=== PATIENT | male | born 1960 | race African-American/Black ===

== ENCOUNTER 2018-07-18 10:11 | Inpatient (IN) | payer OTHER ==
[2018-07-18 10:59] VITALS: BMI 23.4
--- NOTE | 2018-07-18 12:11 | HP ---
CIWA Score Nausea/Vomitin-No Nausea/No Vomiting Muscle Tremors: 4-Moderate,w/Arms Extend Anxiety: 2 Agitation: 0-Normal Activity Paroxysmal Sweats: 3 Orientation: 0-Oriented Tacttile Disturbances: 2-Mild Itch/Numbness/Burn Auditory Disturbances: 0-None Visual Disturbances: 1-Very Mild Sensitivity Headache: 0-None Present CIWA-Ar Total Score: 12 - Admission Criteria OASAS Guidelines: Admission for Medically Managed Detox: Requires at least one of the followin. CIWA greater than 12 2. Seizures within the past 24 hours 3. Delirium tremens within the past 24 hours 4. Hallucinations within the past 24 hours 5. Acute intervention needed for co occurring medical disorder 6. Acute intervention needed for co occurring psychiatric disorder 7. Severe withdrawal that cannot be handled at a lower level of care (continued vomiting, continued diarrhea, abnormal vital signs) requiring intravenous medication and/or fluids 8. Patient presents the following: CIWA greater than 12 Admission Criteria Met: Admission criteria met Admission ROS S - HPI Chief Complaint: alcohol withdrawal symptoms Allergies/Adverse Reactions: Allergies Allergy/AdvReac Type Severity Reaction Status Date / Time No Known Allergies Allergy Verified 07/18/18 10:52 History of Present Illness: Patient is a 58 yo male with hx of alcohol dependence is here seeking inpatient detox d/t withdrawal symptoms. Patient reports evaluated today at [facility] for withdrawal symptoms and referred to our facility. PMHX: HTN Psych: depression, vertigo, gait abnormality Denies SI /HI at this time Denies hx of seizures or blackouts Last detox [facility] five years ago, sobriety for 4.5 years, relapsed one year ago Exam Limitations: No Limitations - Ebola screening Have you traveled outside of the country in the last 21 days: No (N) Have you had contact with anyone from an Ebola affected area: No Do you have a fever: No - Review of Systems Constitutional: Chills, Changes in sleep, Other (weight gain, fatiue) EENT: reports: No Symptoms Reported Respiratory: reports: No Symptoms reported Cardiac: reports: No Symptoms Reported GI: reports: Poor Appetite, Poor Fluid Intake : reports: No Symptoms Reported Musculoskeletal: reports: No Symptoms Reported Integumentary: reports: Dryness Neuro: reports: Weakness, Dizziness Endocrine: reports: No Symptoms Reported Hematology: reports: No Symptoms Reported Psychiatric: reports: Orientated x3, Depressed Other Systems: Reviewed and Negative Patient History - Patient Medical History Hx Anemia: No Hx Asthma: No Hx Chronic Obstructive Pulmonary Disease (COPD): No Hx Cancer: No Hx Cardiac Disorders: No Hx Congestive Heart Failure: No Hx Hypertension: Yes (no meds ) Hx Hypercholesterolemia: No Hx Pacemaker: No HX Cerebrovascular Accident: No Hx Seizures: No Hx Dementia: No Hx Diabetes: No Hx Gastrointestinal Disorders: No Hx Liver Disease: No Hx Genitourinary Disorders: No Hx Sexually Transmitted Disorders: No Hx Renal Disease (ESRD): No Hx Thyroid Disease: No Hx Human Immunodeficiency Virus (HIV): No Hx Hepatitis C: No Hx Depression: Yes Hx Suicide Attempt: No Hx Bipolar Disorder: No Hx Schizophrenia: No - Patient Surgical History Past Surgical History: Yes Other Surgical History: toncillectomy - PPD History Previous Implant?: No (hx PPD + tx with INH at 8 yo ) Documented Results: Positive w/o proof PPD to be Administered?: No - Smoking Cessation Smoking history: Never smoked Have you smoked in the past 12 months: No Hx Chewing Tobacco Use: No Initiated information on smoking cessation: No - Substance & Tx. History Hx Alcohol Use: Yes Hx Substance Use: Yes Substance Use Type: Alcohol Hx Substance Use Treatment: Yes ([facility] five years ago ) - Substances abused Alcohol Substance route: Oral Frequency: Daily Amount used: VODKA- 2PT + 3(16OZ)CANS Age of first use: 12 Date of last use: 07/17/18 Family Disease History - Family Disease History Family Disease History: Heart Disease: Mother ( ), Other: Sister ( Kidney Disease) Admission Physical Exam [facility] - Vital Signs Vital Signs: Vital Signs - 24 hr 07/18/18 07/18/18 10:50 12:04 Temperature 98.1 F 98.1 F Pulse Rate 93 H 93 H Respiratory 18 18 Rate Blood Pressure 156/88 156/88 - Physical General Appearance: Yes: Appropriately Dressed, Alcohol on Breath, Thin, Tremorous, Sweating HEENTM: Yes: EOMI, Hearing grossly Normal, Normal ENT Inspection, Normocephalic , Normal Voice, ERNST, Pharynx Normal, Tm's normal Respiratory: Yes: Chest Non-Tender, Lungs Clear, Normal Breath Sounds, No Respiratory Distress, No Accessory Muscle Use Neck: Yes: Within Normal Limits Breast: Yes: Breast Exam Deferred Cardiology: Yes: Regular Rhythm, Regular Rate Abdominal: Yes: Normal Bowel Sounds, Non Tender, Flat, Soft Genitourinary: Yes: Within Normal Limits Back: Yes: Normal Inspection Musculoskeletal: Yes: full range of Motion, Gait Steady, Pelvis Stable Extremities: Yes: Normal Capillary Refill, Normal Range of Motion, Other (+ varicose veins b/l) 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 Level of Care: Medically Managed Detox Regimen/Protocol: Librium Breathalyzer - Breathalyzer Breathalyzer: 0.294 Urine Drug Screen - Test Device Lot number: [id number] Expiration date: 04/18/20 - Control Is test valid?: Yes - Results Drug screen NEGATIVE: No Urine drug screen results: BZO-Benzodiazepines Inpatient Rehab Admission - Rehab Decision to Admit Inpatient rehab admission?: No
[2018-07-18] MEDS ORDERED: METHOCARBAMOL 500 MG TABLET PO PRN (12:56)
[2018-07-18] MEDS ORDERED: MAG HYDROX/AL HYDROX/SIMETH 30 ML UNIT-DOSE CUP PO PRN (12:56)
[2018-07-18] MEDS ORDERED: MAGNESIUM CITRATE 300 ML BOTTLE PO PRN (12:56)
[2018-07-18] MEDS ORDERED: chlordiazePOXIDE HCL 25 MG CAPSULE PO PRN (12:56)
[2018-07-18] MEDS ORDERED: IBUPROFEN 400 MG TABLET (FP) PO PRN (12:56)
[2018-07-18] MEDS ORDERED: ACETAMINOPHEN 325 MG TABLET (FP) PO PRN ×2 (12:56)
[2018-07-18] MEDS ORDERED: BISMUTH SUBSALICYLATE 262 MG/15 ML BTL PO PRN (12:56)
[2018-07-18] MEDS ORDERED: MENTHOL/PHENOL 1 EACH UD MM PRN (12:56)
[2018-07-18] MEDS ORDERED: MAGNESIUM HYDROX 2400MG/30ML ORAL SUSPENSION 30 ML CUP PO PRN (12:56)
[2018-07-18] MEDS ORDERED: MECLIZINE HCL 12.5 MG TABLET PO PRN (13:20)
--- NOTE | 2018-07-18 16:50 | EKG ---
Test Reason : Blood Pressure : / mmHG Vent. Rate : 062 BPM Atrial Rate : 062 BPM P-R Int : 174 ms QRS Dur : 090 ms QT Int : 446 ms P-R-T Axes : 060 053 062 degrees QTc Int : 452 ms POOR DATA QUALITY, INTERPRETATION MAY BE ADVERSELY AFFECTED NORMAL SINUS RHYTHM POSSIBLE ANTERIOR INFARCT , AGE UNDETERMINED ABNORMAL ECG NO PREVIOUS ECGS AVAILABLE Confirmed by FELICE CERVANTES, HARLEY ([id number]) on 07/18/2018 4:50:23 PM Referred By: Confirmed By:HARLEY VIVEROS MD
[2018-07-18] MEDS: chlordiazePOXIDE HCL 25 MG CAPSULE PO SCH ×2 (18:29→22:17)
[2018-07-18] MEDS: THIAMINE HCL 100 MG TABLET (FP) PO SCH (22:17)
[2018-07-19] MEDS: chlordiazePOXIDE HCL 25 MG CAPSULE PO SCH ×4 (06:29→22:28)
[2018-07-19] MEDS: PRENATAL VITAMINS W/ FOLIC ACID TABLET (FP) PO SCH (10:20)
--- NOTE | 2018-07-19 10:33 | PN ---
[facility] CIWA - CIWA Score Nausea/Vomitin Muscle Tremors: 2 Anxiety: 2 Agitation: 2 Paroxysmal Sweats: 1-Minimal Palms Moist Orientation: 0-Oriented Tacttile Disturbances: 1-Very Mild Itch/Numbness Auditory Disturbances: 1-Very Mild Visual Disturbances: 0-None Headache: 2-Mild CIWA-Ar Total Score: 13 [facility] Progress Note (SOAP) Subjective: alert,irritable,anxious,interrupted sleep,tremor,old laceration of right thumb dorsal aspect,no bleeding Objective: 07/19/18 10:31 Vital Signs Temperature 97.7 F 07/19/18 10:24 Pulse Rate 85 07/19/18 10:24 Respiratory Rate 18 07/19/18 10:24 Blood Pressure 159/99 07/19/18 10:24 O2 Sat by Pulse Oximetry (%) 07/19/18 10:31 labs pending Assessment: 07/19/18 10:32 withdrawal symptom Plan: continue detox,bacitracin ointment bid right thumb,continue detox
[2018-07-19 10:57] LABS: BILIRUBIN,TOTAL 0.9 mg/dL (0.2-1); CALCIUM 8.9 mg/dL (8.5-10.1); HEMATOCRIT 36.7 % (35.4-49); HEMOGLOBIN 12.2 GM/dL (11.7-16.9); MCHC 33.1 g/dl (32.0-35.9); MEAN CELL VOLUME 96.4 fl (80-96); MEAN PLT VOLUME 8.3 fl (7.5-11.1); PLATELET COUNT 195 K/MM3 (134-434); POTASSIUM 4.2 mmol/L (3.5-5.1); RBC 3.81 M/mm3 (4.00-5.60); RDW 18.4 % (11.9-15.9); TOT PROT 7.6 g/dl (6.4-8.2); WHITE BLOOD COUNT 3.5 K/mm3 (4.0-10.0)
[2018-07-19] MEDS: BACITRACIN 15 GM TUBE TOPICAL OINTMENT TP SCH ×2 (12:24→22:30)
[2018-07-19] MEDS: THIAMINE HCL 100 MG TABLET (FP) PO SCH (22:27)
[2018-07-20] MEDS: chlordiazePOXIDE HCL 25 MG CAPSULE PO SCH ×2 (06:14→10:42)
[2018-07-20] MEDS ORDERED: BACITRACIN 0.9 GM PACKET ONE (09:17)
[2018-07-20] MEDS: PRENATAL VITAMINS W/ FOLIC ACID TABLET (FP) PO SCH (10:41)
[2018-07-20] MEDS: BACITRACIN 15 GM TUBE TOPICAL OINTMENT TP SCH ×3 (10:42→22:25)
--- NOTE | 2018-07-20 11:34 | PN ---
S CIWA - CIWA Score Nausea/Vomitin-No Nausea/No Vomiting Muscle Tremors: 2 Anxiety: 2 Agitation: 2 Paroxysmal Sweats: 2 Orientation: 0-Oriented Tacttile Disturbances: 0-None Auditory Disturbances: 0-None Visual Disturbances: 0-None Headache: 2-Mild CIWA-Ar Total Score: 10 S Progress Note (SOAP) Subjective: c/o headache, sweats, anxiety, and tremors. Objective: 07/20/18 11:33 Vital Signs 07/20/18 07/20/18 06:00 09:04 Temperature 97.7 F 97.0 F L Pulse Rate 61 59 L Respiratory 18 18 Rate Blood Pressure 155/78 162/78 Lab Results WBC 3.5 K/mm3 (4.0-10.0) L 07/19/18 07:00 RBC 3.81 M/mm3 (4.00-5.60) L 07/19/18 07:00 Hgb 12.2 GM/dL (11.7-16.9) 07/19/18 07:00 Hct 36.7 % (35.4-49) 07/19/18 07:00 MCV 96.4 fl (80-96) H 07/19/18 07:00 MCHC 33.1 g/dl (32.0-35.9) 07/19/18 07:00 RDW 18.4 % (11.9-15.9) H 07/19/18 07:00 Plt Count 195 K/MM3 (134-434) 07/19/18 07:00 Sodium 140 mmol/L (136-145) 07/19/18 07:00 Potassium 4.2 mmol/L (3.5-5.1) 07/19/18 07:00 Chloride 103 mmol/L (98-107) 07/19/18 07:00 Carbon Dioxide 31 mmol/L (21-32) 07/19/18 07:00 Anion Gap 7 MMOL/L (8-16) L 07/19/18 07:00 BUN 14 mg/dL (7-18) 07/19/18 07:00 Creatinine 1.0 mg/dL (0.55-1.3) 07/19/18 07:00 Random Glucose 94 mg/dL (74-106) 07/19/18 07:00 Calcium 8.9 mg/dL (8.5-10.1) 07/19/18 07:00 Labs noted. Assessment: 07/20/18 11:33 AOX3, in no acute distress. full rom, ambulating in the unit withdrawal symptoms. Plan: continue detox. Increase fluids.
[2018-07-20] MEDS ORDERED: chlordiazePOXIDE HCL 10 MG CAPSULE PO PRN (17:00)
[2018-07-20] MEDS: chlordiazePOXIDE HCL 10 MG CAPSULE PO SCH ×2 (18:00→22:09)
[2018-07-20] MEDS: THIAMINE HCL 100 MG TABLET (FP) PO SCH (22:08)
[2018-07-21] MEDS: chlordiazePOXIDE HCL 10 MG CAPSULE PO SCH ×3 (06:02→18:10)
[2018-07-21] MEDS: PRENATAL VITAMINS W/ FOLIC ACID TABLET (FP) PO SCH (10:05)
[2018-07-21] MEDS: BACITRACIN 15 GM TUBE TOPICAL OINTMENT TP SCH ×2 (10:06→22:47)
[2018-07-21] MEDS ORDERED: cloNIDine HCL 0.1 MG TABLET PO PRN (13:39)
--- NOTE | 2018-07-21 13:41 | PN ---
S CIWA - CIWA Score Nausea/Vomitin-Mild Nausea/No Vomiting Muscle Tremors: 2 Anxiety: 2 Agitation: 2 Paroxysmal Sweats: 2 Orientation: 0-Oriented Tacttile Disturbances: 0-None Auditory Disturbances: 0-None Visual Disturbances: 0-None Headache: 0-None Present CIWA-Ar Total Score: 9 S Progress Note (SOAP) Subjective: Tremor, interrupted sleep Objective: 07/21/18 13:37 Last Vital Signs Temp Pulse Resp BP Pulse Ox 97.3 F L 71 16 148/96 07/21/18 13:28 07/21/18 13:28 07/21/18 13:28 07/21/18 13:28 B/P 148/96 (has h/o htn, not on med) Laboratory Tests 07/19/18 07/19/18 07/19/18 07:00 07:00 07:00 WBC 3.5 L RBC 3.81 L Hgb 12.2 Hct 36.7 MCV 96.4 H MCH 32.0 MCHC 33.1 RDW 18.4 H Plt Count 195 MPV 8.3 Sodium 140 Potassium 4.2 Chloride 103 Carbon Dioxide 31 Anion Gap 7 L BUN 14 Creatinine 1.0 Est GFR (CKD-EPI)AfAm 94.39 Est GFR (CKD-EPI)NonAf 81.44 Random Glucose 94 Calcium 8.9 Total Bilirubin 0.9 AST 71 H ALT 64 H Alkaline Phosphatase 74 Total Protein 7.6 Albumin 4.0 RPR Titer Nonreactive Labs reviewed Assessment: 07/21/18 13:42 Withdrawal symptoms Noted with elevated b/p, has h/o htn Plan: Continue detox Encouraged PO water hydration HTN: clonidine 0.1mg PO q8hr prn, give if b/p > 140/90
[2018-07-21] MEDS: THIAMINE HCL 100 MG TABLET (FP) PO SCH (22:47)
[2018-07-21] MEDS: MELATONIN 5 MG TABLETS PO PRN (22:47)
[2018-07-22] MEDS: chlordiazePOXIDE HCL 10 MG CAPSULE PO SCH ×2 (06:09→17:15)
[2018-07-22] MEDS: PRENATAL VITAMINS W/ FOLIC ACID TABLET (FP) PO SCH (10:22)
[2018-07-22] MEDS: BACITRACIN 15 GM TUBE TOPICAL OINTMENT TP SCH ×2 (10:22→22:21)
--- NOTE | 2018-07-22 13:24 | PN ---
S CIWA - CIWA Score Nausea/Vomitin-No Nausea/No Vomiting Muscle Tremors: None Anxiety: 3 Agitation: 1-Slight > Activity Paroxysmal Sweats: 3 Orientation: 0-Oriented Tacttile Disturbances: 1-Very Mild Itch/Numbness Auditory Disturbances: 0-None Visual Disturbances: 1-Very Mild Sensitivity Headache: 0-None Present CIWA-Ar Total Score: 9 B[facility] Progress Note (SOAP) Subjective: Anxious, Sweating. Objective: PATIENT A & O X 3, OBSERVED AMBULATING ON UNIT UNASSISTED. IN NO ACUTE DISTRESS. 07/22/18 13:22 Vital Signs Temperature 97.3 F L 07/22/18 09:09 Pulse Rate 74 07/22/18 09:09 Respiratory Rate 18 07/22/18 09:09 Blood Pressure 143/92 07/22/18 09:09 O2 Sat by Pulse Oximetry (%) Laboratory Tests 07/19/18 07/19/18 07/19/18 07:00 07:00 07:00 WBC 3.5 L RBC 3.81 L Hgb 12.2 Hct 36.7 MCV 96.4 H MCH 32.0 MCHC 33.1 RDW 18.4 H Plt Count 195 MPV 8.3 Sodium 140 Potassium 4.2 Chloride 103 Carbon Dioxide 31 Anion Gap 7 L BUN 14 Creatinine 1.0 Est GFR (CKD-EPI)AfAm 94.39 Est GFR (CKD-EPI)NonAf 81.44 Random Glucose 94 Calcium 8.9 Total Bilirubin 0.9 AST 71 H ALT 64 H Alkaline Phosphatase 74 Total Protein 7.6 Albumin 4.0 RPR Titer Nonreactive LABS NOTED. Assessment: 07/22/18 13:23 WITHDRAWAL SYMPTOMS. LEUKOPENIA. ELEVATED LIVER ENZYMES (AST, ALT). Plan: CONTINUE DETOX. PATIENT SCHEDULED FOR D/C TOMORROW AM.
[2018-07-22] MEDS: THIAMINE HCL 100 MG TABLET (FP) PO SCH (22:20)
[2018-07-22] MEDS: MELATONIN 5 MG TABLETS PO PRN (22:21)
--- NOTE | 2018-07-23 09:00 | DS ---
[facility] Detox Discharge Summary Admission Date: 07/18/18 Discharge Date: 07/23/18 - History Present History: Alcohol Dependence - Physical Exam Results Vital Signs: Vital Signs Temperature 97.9 F 07/23/18 07:06 Pulse Rate 62 07/23/18 07:06 Respiratory Rate 18 07/23/18 07:06 Blood Pressure 137/78 07/23/18 07:06 O2 Sat by Pulse Oximetry (%) - Treatment Hospital Course: Detox Protocol Followed, Detoxed Safely, Responded well, Discharged Condition Good, Rehab Referral Accepted - Medication Discharge Medications: Ambulatory Orders NK [No Known Home Medication] 07/18/18 - Diagnosis (1) Alcohol dependence with uncomplicated withdrawal Current Visit: Yes Status: Chronic (2) Leukopenia Current Visit: Yes Status: Acute Qualifiers: Neutropenia type: unspecified (3) Essential (primary) hypertension Current Visit: Yes Status: Chronic (4) Vertigo Current Visit: Yes Status: Chronic - AMA Did Patient Leave Against Medical Advice: No (pt declined rehab referred to pt PCP)
[2018-07-23] MEDS: PRENATAL VITAMINS W/ FOLIC ACID TABLET (FP) PO SCH (09:13)
[2018-07-23] MEDS: BACITRACIN 15 GM TUBE TOPICAL OINTMENT TP SCH (09:13)
[2018-07-23 09:24] VITALS: BP 136/80; PULSE 77; TEMP 97.7
== END 2018-07-23 09:43 | disposition home or self-care (01) | DRG 775 ==
LOC: YASAS 10:11 → Y6N 13:33
PROVIDERS: ADMIT Surgery; ATTEND Surgery
PROC: HZ2ZZZZ Detoxification Services for Substance Abuse Treatment (ICD-10-PCS; principal; 2018-07-18)
DX: F10.230 Alcohol dependence with withdrawal, uncomplicated (principal); I10 Essential (primary) hypertension; D72.819 Decreased white blood cell count, unspecified; R42 Dizziness and giddiness; R94.5 Abnormal results of liver function studies
CPT/HCPCS: 36415; 71046-TC-FY; 80053; 85027; 86593; 93005; 93010